=== PATIENT | female | born 1985 | race Caucasian/White ===

== ENCOUNTER → 2017-07-22 | Outpatient (CLI) | payer BC ==
[~2017-07-22] MED LIST: FLONASE NASAL S16 GM NS; PRENATAL1 TA1 PO; XANAX0.5 MG PO; ZYRTEC
== END ==
LOC: SUN.DIA 15:21
DX: O24.419 Gestational diabetes mellitus in pregnancy, unspecified control (principal); Z3A.30 30 weeks gestation of pregnancy; Z71.3 Dietary counseling and surveillance
CPT/HCPCS: G0108

== ENCOUNTER → 2017-08-10 | Outpatient (CLI) | payer BC | LOC: SUN.DIA 12:44 | DX: O24.419 Gestational diabetes mellitus in pregnancy, unspecified control (principal); Z3A.33 33 weeks gestation of pregnancy; Z71.3 Dietary counseling and surveillance | CPT/HCPCS: G0108 ==

== ENCOUNTER → 2017-09-07 | Outpatient (CLI) | payer BC | LOC: SUN.DIA 08-31 15:28 | DX: O24.419 Gestational diabetes mellitus in pregnancy, unspecified control (principal); Z3A.37 37 weeks gestation of pregnancy; Z71.3 Dietary counseling and surveillance | CPT/HCPCS: G0108 ==

== ENCOUNTER 2017-09-25 21:33 | Outpatient (CLI) | payer BC ==
[~2017-09-25] VITALS: Ht 172.7 cm; Wt 63.6 kg
[2017-09-25 21:54] VITALS: BP 107/74; PULSE 71; TEMP 98.9
== END 2017-09-25 23:55 | disposition home or self-care (01) ==
LOC: LDRO 21:33
DX: O62.9 Abnormality of forces of labor, unspecified (principal); Z3A.39 39 weeks gestation of pregnancy

== ENCOUNTER 2017-09-29 02:00 | Inpatient (IN) | payer BC ==
[2017-09-29] VITALS (38 sets, daily range): BP systolic 102–124; BP diastolic 54–84; PULSE 43–100; TEMP 97.7–98.6
[~2017-09-29] VITALS: Ht 172.7 cm; Wt 63.6 kg
[~2017-09-29 02:00] MED LIST changes: -ZYRTEC; +ZYRTEC 10MG10 MG
[2017-09-29 03:15] LABS: BASO # 0.1 (0.0-0.2); BASO % 0.6 % (0.0-2.0); EOS # 0.1 (0.0-0.7); EOS % 1.5 % (0-4.0); GRAN # 6.9 (1.4-6.5); GRAN % 72.6 % (42.2-75.2); HEMOGLOBIN 12.5 g/dl (12.5-16.0); LYMPH # 1.7 (1.2-3.4); MEAN CELL VOLUME 85 fl (80.0-100.0); MEAN CORPUSCULAR HEMOGLOBIN 29 pg (27.0-31.0); MEAN CORPUSCULAR HGB CONC 34 g/dl (33.0-37.0); MEAN PLATELET VOLUME 10.5 fl (7.4-10.4); MONO # 0.6 (0.1-0.6); MONO % 6.7 % (1.7-9.3); PLATELET COUNT 157 K/mm3 (130-400); RED BLOOD COUNT 4.27 M/mm3 (4.10-5.30); REDCELL DISTRIBUTION WIDTH-CV 13.1 % (11.5-14.5)
[2017-09-29 03:17] LABS: HEMATOCRIT 36.4 % (37.0-47.0)
[2017-09-30 01:00] VITALS: BP 110/67; PULSE 69; TEMP 98.3
[2017-09-30 05:00] VITALS: BP 96/56; PULSE 86; TEMP 98.9
[2017-09-30 06:54] LABS: HEMATOCRIT 33.4 % (37.0-47.0); HEMOGLOBIN 11.2 g/dl (12.5-16.0)
[2017-09-30 07:00] VITALS: BP 105/69; PULSE 89
[2017-09-30] MEDS ORDERED: IBU600 MG PO (07:05)
[2017-09-30] MEDS ORDERED: PERCOCET 325 MG1 TA2 PO (07:06)
== END 2017-09-30 13:15 | disposition home or self-care (01) | DRG 775 ==
LOC: LDR 02:00 → OB 11:30
PROVIDERS: Obstetrics & Gynecology
PROC: 10E0XZZ Delivery of Products of Conception, External Approach (ICD-10-PCS; principal; 2017-09-29)
PROC: 0KQM0ZZ Repair Perineum Muscle, Open Approach (ICD-10-PCS; 2017-09-29)
DX: O24.420 Gestational diabetes mellitus in childbirth, diet controlled (principal); O36.0930 Maternal care for other rhesus isoimmunization, third trimester, not applicable or unspecified; Z3A.39 39 weeks gestation of pregnancy; Z37.0 Single live birth; O70.1 Second degree perineal laceration during delivery
CPT/HCPCS: J2400; J2590; J2791; J2795; J7120

== ENCOUNTER 2019-06-27 00:27 | Emergency (ER) | payer BC ==
[~2019-06-27] VITALS: Ht 177.8 cm; Wt 47.7 kg
[~2019-06-27 00:27] MED LIST changes: +IBU600 MG PO; +PERCOCET 325 MG1 TA2 PO
[2019-06-27 01:08] LABS: HEMATOCRIT 44.7 % (37.0-47.0); MEAN CELL VOLUME 84 fl (80.0-100.0); MEAN CORPUSCULAR HEMOGLOBIN 28 pg (27.0-31.0); MEAN CORPUSCULAR HGB CONC 34 g/dl (33.0-37.0); MEAN PLATELET VOLUME 9.6 fl (7.4-10.4); PLATELET COUNT 155 K/mm3 (130-400); REDCELL DISTRIBUTION WIDTH-CV 12.7 % (11.5-14.5)
[2019-06-27 01:20] LABS: ALBUMIN 4.2 gm/dL (3.5-5.0); C-REACTIVE PROTEIN 0.7 mg/dL (0.0-0.9); CALCIUM 8.6 mg/dL (8.4-10.2); CREATININE, serum 0.76 (0.52-1.25); POTASSIUM 4.5 mmol/L (3.4-5.0); TOTAL PROTEIN 7.3 gm/dL (6.4-8.2)
[2019-06-27] MEDS ORDERED: ZYRTEC 10MG10 MG PO (01:42)
[2019-06-27] MEDS ORDERED: BIRTH CONTROL (01:43)
[2019-06-27 02:18] LABS: COLLECTION METHOD CLEAN CATCH
[2019-06-27 02:24] LABS: MUCOUS Present /lpf; PH 5 (5-8); SQUAMOUS EPITHELIAL None Seen /hpf; URINE APPEARANCE Clear; URINE BACTERIA None Seen /hpf; URINE BILIRUBIN Negative (NEGATIVE); URINE BLOOD 2+ (NEGATIVE); URINE COLOR Yellow; URINE GLUCOSE Negative (NEGATIVE); URINE KETONE 1+ (NEGATIVE); URINE LEUKOCYTE ESTERASE Negative (NEGATIVE); URINE NITRATE Negative (NEGATIVE); URINE PROTEIN(semi-quant) Negative (NEGATIVE); URINE UROBILINOGEN Negative (NEGATIVE)
[2019-06-27 02:33] LABS: BAND 6 % (0-10); EOSINOPHIL 1 % (0-4); LYMPHOCYTE 8 % (20.0-51.0); NEUTROPHILS 84 % (42.0-75.2); PLATELET ESTIMATE NORMAL (NORMAL)
[2019-06-27] MEDS ORDERED: ZOFRAN ODT4 MG PO (02:51)
[2019-06-27 03:00] VITALS: BP 108/61; PULSE 83; TEMP 98.6
== END 2019-07-01 03:00 | disposition home or self-care (01) ==
LOC: COL.ER 00:27
PROVIDERS: Nurse Practitioner
DX: R19.7 Diarrhea, unspecified (principal); R11.2 Nausea with vomiting, unspecified
CPT/HCPCS: J1885; J2405; J7030

== ENCOUNTER 2021-11-26 09:19 | Emergency (ER) | payer BC ==
[~2021-11-26] VITALS: Ht 175.3 cm; Wt 55.5 kg
[~2021-11-26 09:19] MED LIST changes: +BIRTH CONTROL; +ZOFRAN ODT4 MG PO; +ZYRTEC 10MG10 MG PO
[2021-11-26 10:28] LABS: C-REACTIVE PROTEIN 8.45 mg/dL (0.00-0.50)
[2021-11-26 10:33] LABS: BASO % 0.4 % (0.0-2.0); EOS # 0.1 K/mm3 (0.0-0.7); GRAN # 2.9 K/mm3 (1.4-6.5); GRAN % 63.1 % (42.2-75.2); HEMATOCRIT 37.4 % (37.0-47.0); HEMOGLOBIN 12.7 g/dl (12.5-16.0); LYMPH # 1.2 K/mm3 (1.2-3.4); LYMPH % 25.3 % (20.0-51.0); MEAN CELL VOLUME 86 fl (80.0-100.0); MEAN CORPUSCULAR HEMOGLOBIN 29 pg (27-31); MEAN CORPUSCULAR HGB CONC 34 g/dl (33.0-37.0); MEAN PLATELET VOLUME 10.5 fl (7.4-10.4); MONO # 0.4 K/mm3 (0.1-0.6); PLATELET COUNT 144 K/mm3 (130-400); RED BLOOD COUNT 4.36 M/mm3 (4.10-5.30); REDCELL DISTRIBUTION WIDTH-CV 12.8 % (11.5-14.5)
[2021-11-26 10:49] LABS: TROPONIN-I < 0.010 ng/mL (0.00-0.033)
[2021-11-26] MEDS ORDERED: PAXLOVID 150-11 EACH PO ×2 (12:12)
[2021-11-26] MEDS ORDERED: PAXLOVID CO-PA1 EACH PO (12:25)
[2021-11-26 12:40] LABS: ALBUMIN 3.5 gm/dL (3.5-5.0); BILIRUBIN,TOTAL 0.7 mg/dL (0.2-1.2); CALCIUM 9.1 mg/dL (8.4-10.2); CREATININE, serum 0.77 mg/dL (0.57-1.11); POTASSIUM 3.4 mmol/L (3.5-4.5); TOTAL PROTEIN 6.8 gm/dL (6.2-8.1)
[2021-11-26 13:30] VITALS: BP 119/68; PULSE 61; TEMP 89.2
== END 2021-11-26 13:30 | disposition home or self-care (01) ==
LOC: COL.ER 09:19
PROVIDERS: Family Medicine
DX: U07.1 COVID-19 (principal)
CPT/HCPCS: J1790; J7030; Q9967